=== PATIENT | female | born 1965 | race Caucasian/White ===

== ENCOUNTER 2016-06-03 18:35 | Emergency (ER) | payer OTHER, MEDICARE ==
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
[2016-06-03 18:00] LABS: BASOPHIL% 0.4 % (0-2.5); EOSINOPHIL# 0.1 X10e3 (0-0.7); EOSINOPHIL% 0.9 % (0.0-7.0); HEMATOCRIT 41.5 % (35.0-45.0); HEMOGLOBIN 13.8 gm/dL (12.0-16.0); LYMPHOCYTE% 18.9 % (17.0-45.0); MEAN CELL VOLUME 94.8 FL (83-96); MEAN CORPUSCULAR HEMOGLOBIN 31.6 PG (28-34); MEAN CORPUSCULAR HGB CONC 33.3 g/dL (30-36); MEAN PLATELET VOLUME 7.1 FL (6.5-11.5); MONOCYTE# 0.7 X10e3 (0-1.0); NEUTROPHIL# 7.7 X10e3 (1.5-7.1); NEUTROPHIL% 72.8 % (40-75); PLATELET COUNT 347 X10e3 (140-420); RED BLOOD COUNT 4.37 X10e (3.90-5.30); RED CELL DISTRIBUTION WIDTH 12.4 % (11.0-15.5); WHITE BLOOD COUNT 10.6 X10e3 (4.0-10.5)
[2016-06-03 18:04] LABS: DIFF IND NO
[2016-06-03 18:17] LABS: BUN/CREATININE RATIO 16.25; CREATININE SERUM 0.8 mg/dL (0.6-1.4); POTASSIUM 3.7 mmol/L (3.5-5.1)
[~2016-06-03 18:35] MED LIST: BUDEPRION XL300 MG PO; CYMBALTA PO; DICYCLOMINE HCL20 MG PO; ESTRADIOL PO; FLORINEF0.1 M1 PO; GABAPENTIN400 MG PO; HYDROCODON-ACE1 EACH PO; INDOCIN SR75 MG PO; LIPITOR20 MG PO; LORTAB 10/500 T1 TAB PO; LORTAB 101 TAB 10/5 PO; LORTAB 7.5-5001 TAB; MEDROL DOSEPAK4 MG PO; MIRALAX255 GM; NEURONTIN PO; NORCO 10-325 TA1 TAB PO; NORVASC PO; PANTOPRAZOLE SO40 MG PO; PERCOCET 5-3251 TAB PO; PHENERGAN; PHENERGAN12.5 MG/SU RC; PROAMATINE10 MG PO; PROPRANOLOL HCL20 MG PO; PROPRANOLOL PO; PROTONIX; PROTONIX PO; REGLAN PO; REGLAN10 MG PO; ROBAXIN; ROXICODONE30 M1; ROXICODONE30 M1 PO; SEROQUEL PO; SEROQUEL XR150 MG PO; SEROQUEL XR300 M1 PO; THORAZINE PO; TOPAMAX; TOPAMAX PO; TYLENOL #3 PO; ULTRAM PO; VOLTAREN75 MG PO; WELLBUTRIN; WELLBUTRIN PO; WELLBUTRIN SR150 MG PO; WELLBUTRIN XL150 MG PO; XARELTO10 MG PO; ZANAFLEX PO; ZOLOFT; ZOLOFT PO; ZOLOFT100 MG PO
== END 2016-06-03 20:20 | disposition home or self-care (01) ==
LOC: CED 18:35
PROVIDERS: Nurse Practitioner
DX: S16.1XXA Strain of muscle, fascia and tendon at neck level, initial encounter (principal); S39.012A Strain of muscle, fascia and tendon of lower back, initial encounter; S80.01XA Contusion of right knee, initial encounter; S20.219A Contusion of unspecified front wall of thorax, initial encounter; S30.1XXA Contusion of abdominal wall, initial encounter; F17.210 Nicotine dependence, cigarettes, uncomplicated; V49.40XA Driver injured in collision with unspecified motor vehicles in traffic accident, initial encounter; Y92.410 Unspecified street and highway as the place of occurrence of the external cause
CPT/HCPCS: 36415; 71020; 72040; 72100; 73560; 73610; 74177; 80048; 85025; 96361; 96374; 96375; 96376; 99284; J2270; J2405; Q9967

== ENCOUNTER 2016-08-09 21:47 | Emergency (ER) | payer BC, MEDICARE ==
[2016-08-09] MEDS ORDERED: REGLAN (21:55)
[2016-08-09] MEDS ORDERED: ROXICODONE30 M1 (21:55)
[2016-08-09] MEDS ORDERED: WELLBUTRIN (21:55)
[2016-08-09] MEDS ORDERED: PROTONIX20 MG (21:56)
[2016-08-09] MEDS ORDERED: TOPAMAX PO (21:56)
== END 2016-08-10 00:12 | disposition home or self-care (01) ==
LOC: SED 21:47
DX: R51 Headache (principal); F17.200 Nicotine dependence, unspecified, uncomplicated; Z79.899 Other long term (current) drug therapy
CPT/HCPCS: 96361; 96374; 96375; 99284; J1200; J1885; J2765; J2930